=== PATIENT | female | born 1930 | race Caucasian/White ===

== ENCOUNTER 2020-05-17 19:43 | Observation (INO) | payer MEDICARE ==
[~2020-05-17] VITALS: Ht 154.9 cm; Wt 51.6 kg
--- NOTE | 2020-05-17 20:18 | NUR ---
PT COMING FROM HOME WHERE SHE LIVES WITH HER DAUGHER AND AMBULATES WITH A WALKER. PT STATES SHE HAS A HX OF SYNCOPE, FAINTED TWICE LAST WEEK, BUT UNSURE WHEN SHE FIRST STARTED FAINTING. PER EMS SYNCOPE TODAY EN ROUTE. PT STATES SHE SOMETIMES FEELS SOB, NO OTHER RESP S/SX. ERP HAS BEEN TO BEDSIDE, PT LAYING IN BED, NO SIGNS OF DISTRESS, CALL LIGHT WITHIN REACH.
[2020-05-17 20:35] LABS: BASOPHILS # (AUTO) 0.05 x10^3/uL (0-0.1); BASOPHILS % (AUTO) 1 % (0-1); EOSINOPHILS % (AUTO) 3 % (1-7); LYMPHOCYTES # (AUTO) 2.68 x10^3/uL (1-3.4); LYMPHOCYTES % (AUTO) 34 % (22-44); MD NO; MEAN CORPUSCULAR HGB CONC 33.1 g/dL (32.4-35.8); MEAN CORPUSCULAR VOLUME 90.9 fL (80-100); MEAN PLATELET VOLUME 7.8 fL (7.4-10.4); MONOCYTES # (AUTO) 0.73 x10^3/uL (0.2-0.8); MONOCYTES % (AUTO) 9 % (2-9); NEUTROPHILS # (AUTO) 4.28 x10^3/uL (1.8-6.8); NEUTROPHILS % (AUTO) 54 % (42-75); PLATELET COUNT 282 x10^3/uL (130-400); RED BLOOD COUNT 3.76 x10^6/uL (3.82-5.3); RED CELL DISTRIBUTION WIDTH 15.7 % (9.6-15.2)
[2020-05-17 20:43] LABS: INTERNATIONAL NORMALIZED RATIO 0.96 (0.93-1.1); PROTHROMBIN TIME 10.2 Seconds (9.6-11.5)
[2020-05-17 20:45] LABS: ALANINE AMINOTRANSFERASE 19 U/L (12-78); ALBUMIN 3.4 g/dL (3.4-5.0); ANION GAP 5 mmol/L (5-15); CHLORIDE 106 mmol/L (98-107); CREATININE 2.04 mg/dL (0.55-1.02)
[2020-05-17 20:49] LABS: ALKALINE PHOSPHATASE 91 U/L (45-117); BILIRUBIN,TOTAL 0.4 mg/dL (0.2-1.0); TROPONIN I < 0.015 ng/mL (0.000-0.045)
--- NOTE | 2020-05-17 22:07 | NUR ---
PT HAS BEEN LAYING IN BED BUT UP TO THE COMMODE IN THE PAST HOUR. HER DAUGHTER HAS BEEN AT THE BEDSIDE. PT HAS CALL LIGHT IN REACH, AND HAS NO COMPLAINT. ADMITTING MD AT BEDSIDE.
[2020-05-17] MEDS ORDERED: INSU100C5 SQ-INSULIN (22:27)
[2020-05-17] MEDS ORDERED: INSU100V8 SQ (22:27)
[2020-05-17] MEDS ORDERED: ALLO300T PO (22:27)
[2020-05-17] MEDS ORDERED: METO25TA91 PO (22:27)
[2020-05-17] MEDS ORDERED: DULA1.5P IM (22:27)
[2020-05-17] MEDS ORDERED: APIX2.5T PO (22:27)
[2020-05-17] MEDS ORDERED: DOXA1TAB2 PO (22:27)
[2020-05-17] MEDS ORDERED: INSULIN GLARGINE 100 UNITS/ML, PEN SQ-INSULIN SCH (22:30)
[2020-05-17] MEDS ORDERED: hydrALAzine 20 MG/ML, 1ML IVPush PRN (22:30)
[2020-05-17] MEDS ORDERED: ACETAMINOPHEN 325 MG TABLET PO PRN (22:30)
[2020-05-17] MEDS ORDERED: ONDANSETRON 2MG/ML, 2ML IVPush PRN (22:30)
[2020-05-17] MEDS ORDERED: [UNRECOGNIZED DRUG - OTHER] (22:40)
[2020-05-17] MEDS ORDERED: AMIT10TA PO (22:40)
[2020-05-17] MEDS ORDERED: PIOG30TA68 PO (22:40)
[2020-05-17] MEDS ORDERED: HYDROCOD (22:40)
[2020-05-17] MEDS ORDERED: TORS5TAB4 PO (22:40)
--- NOTE | 2020-05-17 23:00 | NUR ---
REPORT GIVEN TO JAROCHO STALLWORTH RN.
[2020-05-17 23:30] VITALS: BP 172/82
[2020-05-17] MEDS ORDERED: PLEASE ENTER ALLERGIES MC SCH (23:45)
[2020-05-18] MEDS ORDERED: DIPHENHYDRAMINE 25 MG CAPSULE PO ONE
[2020-05-18 00:18] VITALS: BP 149/63
[2020-05-18] MEDS: APIXABAN 2.5 MG TABLET PO SCH ×3 (00:36→21:23)
[2020-05-18] MEDS: INSULIN GLARGINE 100 UNITS/ML, PEN SQ-INSULIN SCH ×2 (00:45→21:23)
[2020-05-18 06:04] LABS: BASOPHILS # (AUTO) 0.05 x10^3/uL (0-0.1); BASOPHILS % (AUTO) 1 % (0-1); EOSINOPHILS # (AUTO) 0.19 x10^3/uL (0-0.4); EOSINOPHILS % (AUTO) 2 % (1-7); LYMPHOCYTES # (AUTO) 2.82 x10^3/uL (1-3.4); LYMPHOCYTES % (AUTO) 33 % (22-44); MD NO; MEAN CORPUSCULAR HEMOGLOBIN 29.8 pg (27.0-34.8); MEAN CORPUSCULAR HGB CONC 32.6 g/dL (32.4-35.8); MEAN CORPUSCULAR VOLUME 91.3 fL (80-100); MEAN PLATELET VOLUME 7.9 fL (7.4-10.4); MONOCYTES # (AUTO) 0.67 x10^3/uL (0.2-0.8); MONOCYTES % (AUTO) 8 % (2-9); NEUTROPHILS % (AUTO) 56 % (42-75); PLATELET COUNT 263 x10^3/uL (130-400); RED BLOOD COUNT 3.68 x10^6/uL (3.82-5.3); RED CELL DISTRIBUTION WIDTH 15.7 % (9.6-15.2)
[2020-05-18 06:04] LABS: ANION GAP 4 mmol/L (5-15); CHLORIDE 109 mmol/L (98-107)
[2020-05-18 06:10] LABS: CREATININE 1.94 mg/dL (0.55-1.02); TROPONIN I 0.016 ng/mL (0.000-0.045)
[2020-05-18] MEDS: INSULIN LISPRO 100 UNITS/ML, PEN SQ-INSULIN SCH ×4 (07:54→21:00)
[2020-05-18 08:28] VITALS: BP 163/73
[2020-05-18] MEDS: ALLOPURINOL 300 MG TABLET PO SCH (08:31)
[2020-05-18] MEDS: DOXAZOSIN 1MG TABLET PO SCH (08:38)
[2020-05-18] MEDS: METOPROLOL SUCCINATE 25 MG TAB.ER.24H PO SCH (08:38)
[2020-05-18 13:09] VITALS: BP 160/71
[2020-05-18] MEDS ORDERED: ZOLPIDEM 5MG TABLET PO PRN (16:30)
[2020-05-18 19:13] VITALS: BP 144/68
[2020-05-18] MEDS ORDERED: INSULIN GLARGINE 100 UNITS/ML, PEN SQ-INSULIN SCH (21:00)
[2020-05-19 01:47] VITALS: BP 152/67
[2020-05-19 06:30] VITALS: BP 125/62
[2020-05-19] MEDS: INSULIN LISPRO 100 UNITS/ML, PEN SQ-INSULIN SCH ×2 (08:21→11:00)
[2020-05-19] MEDS: ALLOPURINOL 300 MG TABLET PO SCH (09:23)
[2020-05-19] MEDS: APIXABAN 2.5 MG TABLET PO SCH (09:42)
[2020-05-19] MEDS: DOXAZOSIN 1MG TABLET PO SCH (09:42)
[2020-05-19] MEDS: METOPROLOL SUCCINATE 25 MG TAB.ER.24H PO SCH (09:43)
[2020-05-19 13:04] VITALS: BP 147/71
== END 2020-05-19 14:25 | disposition home or self-care (01) ==
LOC: ED 22:22 → INTOOBSV 22:41 → EDIP 22:41 → 5SO 23:34 → DCLOUNGE 05-19 14:19
PROVIDERS: ADMIT Internal Medicine; ATTEND Internal Medicine
DX: R55 Syncope and collapse (principal); R00.2 Palpitations; I12.9 Hypertensive chronic kidney disease with stage 1 through stage 4 chronic kidney disease, or unspecified chronic kidney disease; E11.22 Type 2 diabetes mellitus with diabetic chronic kidney disease; N18.9 Chronic kidney disease, unspecified; C90.01 Multiple myeloma in remission; I48.91 Unspecified atrial fibrillation; I35.1 Nonrheumatic aortic (valve) insufficiency; I37.1 Nonrheumatic pulmonary valve insufficiency; I65.29 Occlusion and stenosis of unspecified carotid artery; I44.0 Atrioventricular block, first degree; Z79.4 Long term (current) use of insulin; Z79.899 Other long term (current) drug therapy; Z79.01 Long term (current) use of anticoagulants
CPT/HCPCS: 36415; 71045; 80048; 80053; 82962; 83735; 84443; 84484; 85025; 85610; 85730; 93005; 93306; 93880; 96374; 97161; 97165; 99285; G0378; J0360; J1815; Q0163